=== PATIENT | female | born 1975 | race American Indian/Alaskan Native ===

== ENCOUNTER 2021-10-29 13:04 | Outpatient (CLI) | payer MEDICAID ==
--- NOTE | 2021-10-29 14:55 | XRay Report ---
BILATERAL FOOT 2 VIEW(S) INDICATION / CLINICAL INFORMATION: PAIN IN RIGHT Toe, bilateral COMPARISON: None available. FINDINGS: BONES / JOINT(S): No acute fracture or dislocation. There are moderate degenerative changes of the bi lateral great toe MTP joints with associated hallux valgus. Bilateral type II os navicular. Bilateral pes planus. Bilateral degenerative enthesopathic changes at the plantar fascia attachment onto the c alcaneus. SOFT TISSUES: No significant abnormality. ADDITIONAL FINDINGS: None. Signer Name: Joey Ochoa MD Signed: 10/29/2021 2:50 PM Workstation Name: [id number]
== END 2021-10-29 13:05 | disposition home or self-care (01) ==
LOC: XRAY 13:04
PROVIDERS: ATTEND Orthopaedic Surgery
DX: M19.072 Primary osteoarthritis, left ankle and foot (principal); M19.071 Primary osteoarthritis, right ankle and foot; M20.12 Hallux valgus (acquired), left foot; M20.11 Hallux valgus (acquired), right foot

== ENCOUNTER 2022-01-17 05:56 | Day surgery (SDC) | payer MEDICAID ==
[2022-01-17] MEDS ORDERED: ACETAMINOPHEN 500 MG TAB PO SCH (06:00)
[2022-01-17] MEDS ORDERED: LACTATED RINGERS 1,000 ML IV SCH (06:00)
[2022-01-17] MEDS ORDERED: MIDAZOLAM 2 MG/2 ML INJ IV NR (06:00)
--- NOTE | 2022-01-17 07:29 | Anesthesia Consultation ---
Anesthesia Consult and Med Hx Date of service: 01/17/22 - Airway Anesthetic Teeth Evaluation: Good ROM Head & Neck: Adequate Mental/Hyoid Distance: Adequate Mallampati Class: Class II Intubation Access Assessment: Probably Good - Pre-Operative Health Status ASA Pre-Surgery Classification: ASA2 Proposed Anesthetic Plan: MAC - Pulmonary Hx Smoking: Yes (2 cigs/day) Hx Respiratory Symptoms: No (COVID+ w/ cough 10/2021; resolved) Hx Sleep Apnea: No (STEF PRE SCREEN LOW RISK) - Cardiovascular System Hx Hypertension: Yes - Central Nervous System CVA: No Hx Back Pain: Yes - Endocrine Hx Renal Disease: No Hx Liver Disease: No Hx Insulin Dependent Diabetes: No Hx Non-Insulin Dependent Diabetes: No Hx Thyroid Disease: No - Other Systems Hx Obesity: No - Additional Comments Anesthesia Medical History Comments: No prior GA. No FHx anesthetic complications.
--- NOTE | 2022-01-17 07:29 | Anesthesia Day of Surgery ---
Anesthesia Day of Surgery - Day of Surgery Patient Examined: Yes Patient H&P Reviewed: Yes Patient is NPO: Yes
[2022-01-17] MEDS ORDERED: LIDOCAINE MPF (2%) 20 MG/1 ML VIAL 5 ML ONE (07:41)
[2022-01-17] MEDS ORDERED: fentaNYL 100 MCG/2 ML INJ ONE (07:41)
[2022-01-17] MEDS ORDERED: ONDANSETRON 4 MG/2 ML INJ ONE (07:41)
[2022-01-17] MEDS ORDERED: propofoL 200 MG/20 ML VIAL IV ONE (07:42)
[2022-01-17] MEDS ORDERED: HYDROcodone/ACETAMINOPHEN 5-325 MG TAB PO PRN (08:00)
[2022-01-17] MEDS ORDERED: HYDROmorphone 1 MG/1 ML INJ IV PRN (08:00)
[2022-01-17] MEDS ORDERED: ceFAZolin/Water 2 GM/20 ML 2 GM/20 ML SYRINGE IV NR (08:00)
[2022-01-17] MEDS ORDERED: ONDANSETRON 4 MG/2 ML INJ IV PRN (08:00)
[2022-01-17] MEDS ORDERED: dexAMETHasone 20 MG/5 ML VIAL ONE (08:18)
[2022-01-17] MEDS ORDERED: HYDROmorphone 1 MG/1 ML INJ ONE (08:43)
[2022-01-17] MEDS ORDERED: BUPIVACAINE/PF (0.25%) 2.5 MG/ML 30 ML VIAL INFILTRATI ONE ×2 (08:56→09:07)
[2022-01-17] MEDS ORDERED: KETOROLAC 30 MG/1 ML INJ ONE (09:16)
--- NOTE | 2022-01-17 09:18 | Procedure Note ---
Date of procedure: 01/17/22 Pre-op diagnosis: Hallux rigidus left great toe Post-op diagnosis: same Procedure: Dorsal Cheilectomy left great toe Procedure Patient was brought to the OR placed on the OR table supine position following induction with MAC anesthesia the patient's left lower extremity was prepped and draped in the usual sterile manner. A timeout procedure was done to identify the patient and the correct operative site. The leg was exsanguinated followed by inflation of the pneumatic tourniquet to 300 mmHg. A dorsal incision was made over the first metatarsophalangeal joint this was taken down sharply through skin subcu the extensor tendon was seen and was retracted out of the operative field this brought us down on the first metatarsophalangeal joint a using a 15 blade the incision was carried down to the periosteum next Hohmann retractors were placed along the medial and lateral borders this was done to protect the soft tissues following this a small oscillating saw was used to remove the dorsal osteophyte this step was were then repeated distally along the proximal phalanx this was done to improve patient's dorsiflexion following this the wound was copiously irrigated rasp was used to smooth the rough bony edges next the soft tissue capsular structures were repaired followed by closure of the skin subcu routine postop dressings were applied patient tolerated the procedure there were no complications she was taken to postanesthesia recovery in stable condition Anesthesia: MAC Surgeon: BRIANNA LEARY (Jose Solorio, 1st assist) Estimated blood loss: minimal Pathology: list (Bone fragments from the first metatarsal and proximal phalanx left great toe) Specimen disposition: to lab Condition: stable Disposition: PACU
[2022-01-17 10:28] VITALS: BP 154/92
--- NOTE | 2022-01-17 10:43 | Post Anesthesia Evaluation ---
- Post Anesthesia Evaluation Patient Participated: Yes Airway Patent: Yes Stable Respiratory Function: Yes Nausea/Vomiting: No Temp > 96.8F: Yes Pain Manageable: Yes Adequeate Hydration: Yes Anesthesia Complications: No
== END 2022-01-17 10:30 | disposition home or self-care (01) ==
LOC: OR 05:56
PROVIDERS: ATTEND Orthopaedic Surgery
DX: M20.22 Hallux rigidus, left foot (principal); I10 Essential (primary) hypertension; K21.9 Gastro-esophageal reflux disease without esophagitis; Z20.822 Contact with and (suspected) exposure to COVID-19; Z79.899 Other long term (current) drug therapy; Z87.891 Personal history of nicotine dependence; Z98.890 Other specified postprocedural states; Z72.89 Other problems related to lifestyle
CPT/HCPCS: 28289; 88304; 88311; J0690; J1100; J1170; J1885; J2250; J2405; J2704; J3010; J3490; J7120; U0003